=== PATIENT | male | born 2000 | race Caucasian/White ===

== ENCOUNTER 2023-04-19 06:27 | Emergency (ER) | payer OTHER ==
[~2023-04-19] VITALS: Ht 176.5 cm; Wt 89.5 kg
[2023-04-19 06:27] VITALS: TEMP 97.6
[2023-04-19] MEDS ORDERED: NS 1,000 ML IV ONE (06:45)
[2023-04-19 07:11] LABS: BASO % 0.3 % (0.0-1.0); EOS # 0.1 10^3/uL (0.0-0.5); EOS % 0.9 % (0.0-3.0); LYMPH % 26.1 % (24.0-44.0); MEAN CORPUSCULAR HEMOGLOBIN 29.3 pg (27.0-33.0); MEAN CORPUSCULAR HGB CONC 34.2 g/dl (32.0-36.5); MEAN CORPUSCULAR VOLUME 85.6 fl (80.0-96.0); MONO # 0.9 10^3/uL (0.0-0.8); MONO % 11.3 % (2.0-8.0); NEUTROPHILS # 4.7 10^3/uL (1.5-8.5); NEUTROPHILS % 61.1 % (36.0-66.0); PLATELET COUNT, AUTOMATED 247 10^3/uL (150-450); RED BLOOD COUNT 4.44 10^6/uL (4.30-6.10); WHITE BLOOD COUNT 7.6 10^3/uL (4.0-10.0)
[2023-04-19] MEDS ORDERED: LACTULOSE 20GM/30ML SYRUP UDC PO ONE (07:35)
[2023-04-19 07:55] LABS: ALBUMIN 3.7 G/DL (3.2-5.2); ALKALINE PHOSPHATASE 70 U/L (46-116); ALT/SGPT 26 U/L (7.0-40); AMYLASE 48 U/L (30-118); AST/SGOT 21 U/L (<34); BILIRUBIN,DIRECT 0.3 MG/DL (<0.4); BILIRUBIN,TOTAL 0.8 MG/DL (0.3-1.2); CK-MB VALUE MASS 1.6 NG/ML (<3.6); TOTAL PROTEIN 6.3 G/DL (5.7-8.2)
[2023-04-19 08:01] VITALS: O2SAT 100
[2023-04-19 08:12] LABS: CPK CREATINE PHOSPHOKINASE 224 U/L (46-171); MB/CK RELATIVE INDEX 0.71 (< OR =4)
[2023-04-19 08:13] LABS: BLOOD UREA NITROGEN 11 MG/DL (9-23); CALCIUM LEVEL 8.7 MG/DL (8.5-10.1); CARBON DIOXIDE LEVEL 25 MMOL/L (20-31); CHLORIDE LEVEL 106 MMOL/L (98-107); GLOMERULAR FILTRATION RATE > 60.0 (>60); GLUCOSE, FASTING 99 MG/DL (60-100); POTASSIUM SERUM 4.4 MMOL/L (3.5-5.1); SODIUM LEVEL 140 MMOL/L (136-145)
[2023-04-19 08:15] LABS: LIPASE 30 U/L (12-53)
[2023-04-19 08:20] LABS: RSV AMPLIFICATION NEGATIVE (NEGATIVE)
[2023-04-19 08:39] VITALS: BP 142/88
[2023-04-20] MEDS ORDERED: POLY17PO18 (09:58)
[2023-04-20] MEDS ORDERED: IBUP80TA (09:58)
[2023-04-20] MEDS ORDERED: PANT40TA29 PO (13:44)
[2023-04-20] MEDS ORDERED: CARA1TAB6 PO (13:44)
== END 2023-04-19 10:34 | disposition home or self-care (01) ==
LOC: M ED 06:27
DX: K59.00 Constipation, unspecified (principal); F17.210 Nicotine dependence, cigarettes, uncomplicated; R00.1 Bradycardia, unspecified

== ENCOUNTER 2023-04-20 09:48 | Emergency (ER) | payer OTHER ==
[~2023-04-20] VITALS: Ht 175.3 cm; Wt 98.8 kg
[2023-04-20] MEDS ORDERED: POLY17PO18 (09:58)
[2023-04-20] MEDS ORDERED: IBUP80TA (09:58)
[2023-04-20 11:35] LABS: BASO % 0.3 % (0.0-1.0); EOS % 0.3 % (0.0-3.0); HEMATOCRIT 37.2 % (42.0-52.0); HEMOGLOBIN 12.4 g/dl (13.5-17.5); LYMPH # 1.9 10^3/uL (1.5-5.0); LYMPH % 24.8 % (24.0-44.0); MEAN CORPUSCULAR HEMOGLOBIN 29.4 pg (27.0-33.0); MEAN CORPUSCULAR HGB CONC 33.3 g/dl (32.0-36.5); MEAN CORPUSCULAR VOLUME 88.2 fl (80.0-96.0); MONO # 0.6 10^3/uL (0.0-0.8); MONO % 7.6 % (2.0-8.0); NEUTROPHILS % 66.7 % (36.0-66.0); PLATELET COUNT, AUTOMATED 225 10^3/uL (150-450); RED BLOOD COUNT 4.22 10^6/uL (4.30-6.10); WHITE BLOOD COUNT 7.5 10^3/uL (4.0-10.0)
[2023-04-20] MEDS ORDERED: PANTOPRAZOLE 40MG VIAL IV ONE (11:35)
[2023-04-20] MEDS ORDERED: NS 1,000 ML IV ONE (11:35)
[2023-04-20 12:07] LABS: LIPASE 28 U/L (12-53)
[2023-04-20 12:09] LABS: ALBUMIN 3.8 G/DL (3.2-5.2); ALKALINE PHOSPHATASE 73 U/L (46-116); ALT/SGPT 30 U/L (7.0-40); AST/SGOT 17 U/L (<34); BILIRUBIN,DIRECT 0.2 MG/DL (<0.4); BILIRUBIN,TOTAL 0.6 MG/DL (0.3-1.2); BLOOD UREA NITROGEN 9 MG/DL (9-23); CARBON DIOXIDE LEVEL 27 MMOL/L (20-31); CHLORIDE LEVEL 105 MMOL/L (98-107); CREATININE FOR GFR 0.86 MG/DL (0.70-1.30); GLOMERULAR FILTRATION RATE > 60.0 (>60); GLUCOSE, FASTING 93 MG/DL (60-100); POTASSIUM SERUM 4.1 MMOL/L (3.5-5.1); SODIUM LEVEL 140 MMOL/L (136-145); TOTAL PROTEIN 6.4 G/DL (5.7-8.2)
[2023-04-20] MEDS ORDERED: ONDANSETRON 4MG 2ML VIAL IV ONE (12:20)
[2023-04-20] MEDS ORDERED: ISOVUE-370 76% 100ML VIAL As Ordered ONE (12:23)
[2023-04-20] MEDS ORDERED: MORPHINE 4 MG/ML 1ML VIAL IV ONE (12:40)
[2023-04-20] MEDS ORDERED: PANT40TA29 PO (13:44)
[2023-04-20] MEDS ORDERED: CARA1TAB6 PO (13:44)
[2023-04-20 14:20] VITALS: BP 121/61; TEMP 98.5; O2SAT 97
== END 2023-04-20 14:17 | disposition home or self-care (01) ==
LOC: M ED 09:48
DX: K29.80 Duodenitis without bleeding (principal); K57.90 Diverticulosis of intestine, part unspecified, without perforation or abscess without bleeding; R16.0 Hepatomegaly, not elsewhere classified; Z79.899 Other long term (current) drug therapy; Z79.1 Long term (current) use of non-steroidal anti-inflammatories (NSAID)
CPT/HCPCS: 74177; 80047; 80048; 80076; 83690; 85025; 96361; 96374; 96375; 99283; C9113; J2405; Q9967

== ENCOUNTER 2023-05-10 10:24 | Day surgery (SDC) | payer OTHER ==
[~2023-05-10] VITALS: Ht 175.3 cm; Wt 88.0 kg
[~2023-05-10 10:24] MED LIST: CARA1TAB6 PO; GLUC1TAB58 PO; IBUP80TA; NS 1,000 ML IV ONE; PANT40TA29 PO; POLY17PO18
[2023-05-10] MEDS ORDERED: propofoL 200 MG/20 ML VIAL As Ordered ONE ×2 (10:27→10:28)
[2023-05-10] MEDS ORDERED: LIDOCAINE 2% 100MG/5ML SDV (FOR ANES.) As Ordered ONE (10:29)
[2023-05-10] MEDS ORDERED: fentaNYL 100 MCG/2 ML INJECTION As Ordered ONE (13:02)
[2023-05-10 13:47] VITALS: BP 116/65; TEMP 96.4; O2SAT 100
[2023-05-10] MEDS ORDERED: dexmedeTOMIDine (4MCG/ML)200MCG/50ML BTL (PRECEDEX) As Ordered ONE (17:06)
== END 2023-05-10 13:51 | disposition home or self-care (01) ==
LOC: M OPP 10:24
PROVIDERS: ATTEND Surgery
DX: K29.80 Duodenitis without bleeding (principal); K21.9 Gastro-esophageal reflux disease without esophagitis; Z87.19 Personal history of other diseases of the digestive system; F17.290 Nicotine dependence, other tobacco product, uncomplicated; F17.210 Nicotine dependence, cigarettes, uncomplicated; Z79.899 Other long term (current) drug therapy
CPT/HCPCS: 43239; 88305; J3010